=== PATIENT | male | born 1965 | race Caucasian/White ===

== ENCOUNTER 2019-07-27 16:16 | Emergency (ER) | payer BC ==
--- NOTE | 2019-07-27 18:16 | EDM.PDOC ---
ED HPI GENERAL MEDICAL PROBLEM - General Chief Complaint: Chest Pain Stated Complaint: CHEST AND ARM PAIN LT SIDE NUMBNESS Time Seen by Provider: 07/27/19 17:53 Source of Information: Reports: Patient History Limitations: Reports: No Limitations - History of Present Illness INITIAL COMMENTS - FREE TEXT/NARRATIVE: Patient is a 53-year-old male who presents with complaints of midsternal and left lower chest "pressure" that has been occurring intermittently over the last 2 weeks. The "pressure "occurs daily and lasts for a couple hours. Patient states that around noon today he developed the pain with along with a sensation that it was radiating down his left arm and up into his neck. Pain does not improve or worsen with deep breathing and areas not tender to palpation. He denies any shortness of breath or diaphoresis with these episodes. He has no chronic health problems, however does have a history of GERD. He states over the last 2 weeks he has been taking aspirin 324 mg twice daily. He states that 6 or 7 years ago he had similar symptoms and at that time was told that he had "acid reflux". He does not take a daily PPI. He has been using Tums over the last week without improvement in his symptoms. Left Chest Pain Score (Numeric/FACES): 6 - Related Data Allergies Allergy/AdvReac Type Severity Reaction Status Date / Time No Known Allergies Allergy Verified 07/27/19 16:23 Home Meds: Home Meds . [No Known Home Meds] 07/27/19 [History] Calcium Carbonate [Tums] 400 mg PO ASDIRECTED PRN 07/27/19 [History] Past Medical History Gastrointestinal History: Reports: GERD Social & Family History - Tobacco Use Smoking Status *Q: Never Smoker - Caffeine Use Caffeine Use: Reports: Coffee - Recreational Drug Use Recreational Drug Use: No ED ROS GENERAL - Review of Systems Review Of Systems: See Below Constitutional: Reports: No Symptoms. Denies: Fever, Chills, Weakness, Diaphoresis HEENT: Reports: No Symptoms Respiratory: Reports: No Symptoms. Denies: Shortness of Breath, Pleuritic Chest Pain, Cough Cardiovascular: Reports: Chest Pain. Denies: Dyspnea on Exertion, Edema, Lightheadedness, Palpitations, Syncope Endocrine: Reports: No Symptoms GI/Abdominal: Reports: No Symptoms. Denies: Abdominal Pain, Diarrhea, Nausea, Vomiting : Reports: No Symptoms Musculoskeletal: Reports: No Symptoms Skin: Reports: No Symptoms Neurological: Reports: No Symptoms Psychiatric: Reports: No Symptoms. Denies: Anxiety Hematologic/Lymphatic: Reports: No Symptoms Immunologic: Reports: No Symptoms ED EXAM, GENERAL - Physical Exam Exam: See Below Exam Limited By: No Limitations General Appearance: Alert, WD/WN, No Apparent Distress Throat/Mouth: Normal Inspection, Normal Lips, Normal Teeth, Normal Gums, Normal Oropharynx, Normal Voice, No Airway Compromise Head: Atraumatic, Normocephalic Neck: Normal Inspection, Supple, Non-Tender, Full Range of Motion Respiratory/Chest: No Respiratory Distress, Lungs Clear, Normal Breath Sounds, No Accessory Muscle Use, Chest Non-Tender Cardiovascular: Normal Peripheral Pulses, Regular Rate, Rhythm, No Edema, No Gallop, No JVD, No Murmur, No Rub GI/Abdominal: Normal Bowel Sounds, Soft, Non-Tender, No Organomegaly, No Distention, No Abnormal Bruit, No Mass Extremities: Normal Inspection, Normal Range of Motion, Non-Tender, Normal Capillary Refill, No Pedal Edema Neurological: Alert, Oriented, CN II-XII Intact, Normal Cognition, Normal Gait, Normal Reflexes, No Motor/Sensory Deficits Psychiatric: Normal Affect, Normal Mood Skin Exam: Warm, Dry, Intact, Normal Color, No Rash Course - Vital Signs Last Recorded V/S: Last Vital Signs Temp 97.6 F 07/27/19 16:20 Pulse 51 L 07/27/19 16:20 Resp 13 07/27/19 16:20 BP 152/100 H 07/27/19 16:20 Pulse Ox 94 L 07/27/19 16:20 - Orders/Labs/Meds Orders: Active Orders 24 hr Category Date Time Status EKG Documentation Completion [RC] ASDIRECTED Care 07/27/19 16:26 Active Chest 1V Frontal [CR] Stat Exams 07/27/19 16:15 Taken EKG 12 Lead [EK] Stat Ther 07/27/19 16:26 Ordered Labs: Laboratory Tests 07/27/19 07/27/19 07/27/19 Range/Units 16:34 16:34 16:34 WBC 6.03 (4.23-9.07) K/mm3 RBC 4.79 (4.63-6.08) M/mm3 Hgb 13.9 (13.7-17.5) gm/dl Hct 41.2 (40.1-51.0) % MCV 86.0 (79.0-92.2) fl MCH 29.0 (25.7-32.2) pg MCHC 33.7 (32.2-35.5) g/dl RDW Std Deviation 39.5 (35.1-43.9) fL Plt Count 273 (163-337) K/mm3 MPV 9.5 (9.4-12.3) fl Neut % (Auto) 64.9 (34.0-67.9) % Lymph % (Auto) 24.0 (21.8-53.1) % Harney % (Auto) 8.0 (5.3-12.2) % Eos % (Auto) 2.2 (0.8-7.0) Baso % (Auto) 0.7 (0.1-1.2) % Neut # (Auto) 3.92 (1.78-5.38) K/mm3 Lymph # (Auto) 1.45 (1.32-3.57) K/mm3 Harney # (Auto) 0.48 (0.30-0.82) K/mm3 Eos # (Auto) 0.13 (0.04-0.54) K/mm3 Baso # (Auto) 0.04 (0.01-0.08) K/mm3 PT 10.7 (9.7-12.0) SECONDS INR 0.98 Sodium 143 (136-145) mEq/L Potassium 4.0 (3.5-5.1) mEq/L Chloride 106 (98-107) mEq/L Carbon Dioxide 26 (21-32) mEq/L Anion Gap 15.0 (5-15) BUN 15 (7-18) mg/dL Creatinine 1.1 (0.7-1.3) mg/dL Est Cr Clr Drug Dosing 78.56 mL/min Estimated GFR (MDRD) > 60 (>60) mL/min BUN/Creatinine Ratio 13.6 L (14-18) Glucose 95 (74-106) mg/dL Calcium 9.2 (8.5-10.1) mg/dL Total Bilirubin 0.5 (0.2-1.0) mg/dL AST 19 (15-37) U/L ALT 42 (16-63) U/L Alkaline Phosphatase 54 (46-116) U/L Troponin I < 0.017 (0.00-0.056) ng/mL Total Protein 7.8 (6.4-8.2) g/dl Albumin 4.7 (3.4-5.0) g/dl Globulin 3.1 gm/dL Albumin/Globulin Ratio 1.5 (1-2) 07/27/19 Range/Units 19:00 WBC (4.23-9.07) K/mm3 RBC (4.63-6.08) M/mm3 Hgb (13.7-17.5) gm/dl Hct (40.1-51.0) % MCV (79.0-92.2) fl MCH (25.7-32.2) pg MCHC (32.2-35.5) g/dl RDW Std Deviation (35.1-43.9) fL Plt Count (163-337) K/mm3 MPV (9.4-12.3) fl Neut % (Auto) (34.0-67.9) % Lymph % (Auto) (21.8-53.1) % Harney % (Auto) (5.3-12.2) % Eos % (Auto) (0.8-7.0) Baso % (Auto) (0.1-1.2) % Neut # (Auto) (1.78-5.38) K/mm3 Lymph # (Auto) (1.32-3.57) K/mm3 Harney # (Auto) (0.30-0.82) K/mm3 Eos # (Auto) (0.04-0.54) K/mm3 Baso # (Auto) (0.01-0.08) K/mm3 PT (9.7-12.0) SECONDS INR Sodium (136-145) mEq/L Potassium (3.5-5.1) mEq/L Chloride (98-107) mEq/L Carbon Dioxide (21-32) mEq/L Anion Gap (5-15) BUN (7-18) mg/dL Creatinine (0.7-1.3) mg/dL Est Cr Clr Drug Dosing mL/min Estimated GFR (MDRD) (>60) mL/min BUN/Creatinine Ratio (14-18) Glucose (74-106) mg/dL Calcium (8.5-10.1) mg/dL Total Bilirubin (0.2-1.0) mg/dL AST (15-37) U/L ALT (16-63) U/L Alkaline Phosphatase (46-116) U/L Troponin I < 0.017 (0.00-0.056) ng/mL Total Protein (6.4-8.2) g/dl Albumin (3.4-5.0) g/dl Globulin gm/dL Albumin/Globulin Ratio (1-2) - Re-Assessments/Exams Free Text/Narrative Re-Assessment/Exam: 07/27/19 18:20 Hematology was grossly unremarkable. Troponin was negative. EKG was normal. Chest x-ray was normal. Patient states that he has had an allergic reaction to lidocaine in the past, therefore we will not use a GI cocktail today. Plan will be to repeat troponin at 2 hours after the original was drawn. 07/27/19 19:37 Repeat troponin was also negative. It is likely that his pain is related to his GERD. I will recommend that he start taking a daily omeprazole in the morning. I also did recommend that he call to schedule an appointment with a primary care provider in 1 week to follow-up and to establish care as he states he has not been to a primary care provider in 6 to 7 years. Discharge instructions as documented. Departure - Departure Time of Disposition: 19:39 Disposition: Home, Self-Care 01 Condition: Good Clinical Impression: Atypical chest pain Instructions: Nonspecific Chest Pain, [id number] Referrals: PCP,None [Primary Care Provider] - Forms: ED Department Discharge Additional Instructions: You were seen in the emergency department today for intermittent middle and left -sided chest pain over the last 2 weeks. Your work-up included blood work, an EKG of your heart, as well as a chest x-ray. Your work-up was completely normal. There is no sign that you are having a heart attack. As we discussed, I would recommend that you start taking an omeprazole daily as it is possible that your symptoms may be related to your gastroesophageal reflux disease. This medication may be purchased [id number]. I also suggest that you call to make a follow-up appointment and to establish care with a primary care provider for late next week. If you should experience any worsening symptoms of concern, please do not hesitate to return to the emergency department. Sepsis Event Note - Evaluation Sepsis Screening Result: No Definite Risk - Focused Exam Vital Signs: Vital Signs Temp Pulse Resp BP Pulse Ox 07/27/19 16:20 97.6 F 51 L 13 152/100 H 94 L Date Exam was Performed: 07/27/19 Time Exam was Performed: 19:37 - My Orders Last 24 Hours: My Active Orders 07/27/19 16:15 Chest 1V Frontal [CR] Stat 07/27/19 16:26 EKG Documentation Completion [RC] ASDIRECTED EKG 12 Lead [EK] Stat - Assessment/Plan Last 24 Hours: My Active Orders 07/27/19 16:15 Chest 1V Frontal [CR] Stat 07/27/19 16:26 EKG Documentation Completion [RC] ASDIRECTED EKG 12 Lead [EK] Stat
--- NOTE | 2019-07-28 08:00 | CR ---
Chest: Portable view of the chest was obtained. Comparison: Prior chest x-ray of 05/16/10. Heart size and mediastinum are normal. Lungs are clear with no acute parenchymal change. Bony structures are grossly intact. Impression: 1. Nothing acute is identified on portable chest x-ray. Diagnostic code #1 This report was dictated in [place] Standard Time
== END 2019-07-27 19:51 | disposition home or self-care (01) ==
LOC: JD.ED 16:16
DX: R07.89 Other chest pain (principal)
CPT/HCPCS: 36415; 71045; 71045-26; 80053; 84484; 85025; 85610; 93005; 93010; 99283; 99285-25